=== PATIENT | female | born 1940 | race African-American/Black ===

== ENCOUNTER → 2016-05-07 | Outpatient (CLI) | payer OTHER ==
[2015-04-07 15:17] VITALS: BP 135/75
[~2016-05-07] MED LIST: ALBU2.5V5 NEB; DICL1PAT4 TD; HYDR-2666 PO; IBUP-1027 PO; IPRA3AMP IH; LOSA1TAB18 PO; PRED20TA PO; PROAIR HFA8.5 GM IH; TRAM50TA PO
--- NOTE | 2016-05-07 14:26 | RAD ---
EXAM: Chest, 2 views. HISTORY: Asthma. COMPARISON: 04/05/2015. FINDINGS: Frontal and lateral views of the chest are obtained. There is no infiltrate, effusion or pneumothorax. There is nodular opacity overlying the left upper lobe secondary to a prominent first rib and. The heart is normal in size. IMPRESSION: No acute pulmonary finding.
== END | disposition home or self-care (01) ==
LOC: RAD 13:42
PROVIDERS: ATTEND Family Medicine
DX: J45.51 Severe persistent asthma with (acute) exacerbation (principal)
CPT/HCPCS: 71020

== ENCOUNTER 2016-05-17 06:31 | Day surgery (SDC) | payer OTHER ==
[~2016-05-17] VITALS: Ht 152.4 cm; Wt 115.2 kg
[~2016-05-17 06:31] MED LIST changes: +ACET500T33 PO
[2016-05-17] MEDS ORDERED: ACETAMINOPHEN INTRAVENOUS 100 ML IV ONE (06:45)
[2016-05-17] MEDS ORDERED: HYDROMORPHONE 2 MG/ML VIAL. IV PRN (07:00)
[2016-05-17] MEDS ORDERED: FENTANYL PF 100 MCG/2 ML VIAL. IV PRN ×2 (07:00)
[2016-05-17] MEDS ORDERED: IV RINGERS,LACTATED 1000ML 1,000 ML IV SCH (07:00)
[2016-05-17] MEDS ORDERED: PROCHLORPERAZINE 10 MG/2 ML VIAL. IV PRN (07:00)
[2016-05-17] MEDS ORDERED: LIDOCAINE 1% 1 ML SYRINGE. ID PRN (07:00)
[2016-05-17] MEDS ORDERED: MORPHINE SULFATE 2 MG/ML DISP.SYRIN. IV PRN (07:00)
[2016-05-17] MEDS ORDERED: ONDANSETRON PF 4 MG/2 ML VIAL. IV PRN (07:00)
[2016-05-17] MEDS ORDERED: BUPIVACAINE-EPI 0.25%-1:200000 50 ML VIAL. ONE (07:02)
[2016-05-17] MEDS ORDERED: DESFLURANE 61 TO 120 MINUTES IH ONE (07:32)
[2016-05-17] MEDS ORDERED: FENTANYL PF 100 MCG/2 ML VIAL. ONE (07:34)
[2016-05-17] MEDS ORDERED: ONDANSETRON PF 4 MG/2 ML VIAL. ONE (07:34)
[2016-05-17] MEDS ORDERED: PROPOFOL 20 ML IV ONE (07:34)
[2016-05-17] MEDS ORDERED: DEXAMETHASONE SOD PHOS 20 MG/5 ML VIAL. ONE (07:34)
[2016-05-17] MEDS ORDERED: LIDOCAINE 2% 100 MG/5 ML DISP.SYRIN. ONE (07:34)
[2016-05-17] MEDS ORDERED: PHENYLEPHRINE in 0.9% NACL PF 1 MG/10 ML DISP.SYRIN. IV ONE (08:18)
--- NOTE | 2016-05-17 08:33 | PDOC ---
BRIEF OPERATIVE NOTE Date: May 17, 2016 Pre-Op Diagnosis Right breast mass Post-Op Diagnosis Same Procedure Performed Excisional Biopsy Right Breast Mass Surgeon Taqueria Anesthesia Type: General Blood Loss 10ml Specimens Obtained Right breast mass Findings as above Complications None RENAY PALUMBO MD May 17, 2016 08:33
--- NOTE | 2016-05-17 08:34 | DISCH ---
DISCHARGE INSTRUCTIONS Condition on Discharge Condition on Discharge: Stable Activity After Discharge Activity Instructions for Disc: Avoid exertion Diet after Discharge Diet after Discharge: Regular Wound Incision Care Other wound/incision instructi: May shower in 24 hours Contacting the after DC Call your doctor for: If your condition worsens Follow-Up Follow up with: Dr Palumbo in 2 weeks RENAY PALUMBO MD May 17, 2016 08:34
[2016-05-17] MEDS ORDERED: HYDR-971 PO (09:17)
[2016-05-17 10:10] VITALS: BP 138/67
--- NOTE | 2016-05-17 15:39 | OP ---
DATE OF SURGERY: 05/17/2016 PREOPERATIVE DIAGNOSIS: Right breast mass. POSTOPERATIVE DIAGNOSIS: Right breast mass. NAME OF THE PROCEDURE: Excision of right breast mass. SURGEON: Gerhard Palumbo MD INDICATIONS FOR THE PROCEDURE: The patient is a 75-year-old female who has a probable mass in the right breast, abnormal mammogram. Procedure of excision of mass was explained to the patient in detail. Risks and benefits were also discussed including bleeding, infection, possible necessitating further surgery depending on the pathology. The patient seemed to understand and gave verbal and written consent to have the procedure performed. DESCRIPTION OF PROCEDURE: The patient was taken to the operating room and placed in the supine position. General anesthesia was initiated. Once the patient was asleep and intubated, her right breast was prepped and draped in usual sterile fashion using ChloraPrep. Skin over the mass was incised with a 10 blade scalpel. This was carried down through subcutaneous tissue with electrocautery for hemostasis. The mass was excised sharply with electrocautery and sent for pathology. Electrocautery was used to control hemostasis. Once this was controlled, the wound was closed in 2 layers, deep layer with running 3-0 Vicryl and skin was reapproximated with 4-0 subcuticular Monocryl. Mastisol, Steri-Strips, 4x4's and Medipore tape were applied as a dressing. The patient was awakened, extubated in the operating room, taken to recovery in stable condition. All sponge and instrument counts listed as correct. ESTIMATED BLOOD LOSS: 5 mL. GERHARD PALUMBO MD DR: JAMES/kathie JOB#: [id number] / [id number] ecc Renée ILGESIAS MD
--- NOTE | 2016-05-21 14:48 | PATHOLOGY ---
PATHOLOGY REPORT * * * * * * * * FINAL DIAGNOSIS: Breast tissue, right breast mass excisional biopsy: - Fibrocystic changes with dense stromal sclerosis and focal duct ectasia. - Fat necrosis, focal. COMMENT: There is no evidence of malignancy. (JPM:; d/t: 05/21/16) REPORT ELECTRONICALLY SIGNED BY: Ziggy Saeed M.D. DATE/TIME: 05/21/2016 14:47 * * * * * * * * GROSS PATHOLOGY: The specimen is received in formalin labeled "Doris Covington, right breast mass". Received is a 311 g unoriented segment of bright yellow lobulated tissue measuring 12.5 x 10.5 x 5.6 cm in greatest dimensions. The specimen is inked black. Sectioning reveals yellow-hamlin, lobulated to white-hamlin, fibrous cut surfaces throughout with no grossly distinct nodules or lesions. The specimen is submitted representatively in cassettes A1 through A6. The cold ischemic time is 2 minutes. The total formalin fixation time is 71 hours and 23 minutes. (CAA; 05/18/2016) INITIAL CPT CODE(S): A; 67430 Professional services [place] [address] Technical services performed by [facility] at [address] [place] [address], [address], [place] [address]. SPECIMEN(S) RECEIVED: A.Right breast mass CLINICAL HISTORY: Right breast mass PATIENT: DORIS COVINGTON /AGE: 812/06/1940 (Age: 75) PATIENT #: [id number] ALT CASE #: SPECIMEN COLLECTION DATE: 05/17/2016 SPECIMEN RECEIVED DATE: 05/17/2016 [facility] - [address] [place] [address] - PHONE: [phone] * * * END OF REPORT * * *
== END 2016-05-17 10:23 | disposition home or self-care (01) ==
LOC: SURG 06:31
PROVIDERS: ATTEND Surgery
DX: N63 Unspecified lump in breast (principal); R92.8 Other abnormal and inconclusive findings on diagnostic imaging of breast; J44.9 Chronic obstructive pulmonary disease, unspecified; E66.9 Obesity, unspecified; J45.909 Unspecified asthma, uncomplicated; I10 Essential (primary) hypertension; M19.90 Unspecified osteoarthritis, unspecified site; Z98.51 Tubal ligation status
CPT/HCPCS: 19120; J0131; J1100; J1956; J2370; J2405; J2704; J3010

== ENCOUNTER → 2017-06-28 | Outpatient (CLI) | payer OTHER | END | disposition home or self-care (01) | LOC: KCIC US 08:45 | DX: I12.9 Hypertensive chronic kidney disease with stage 1 through stage 4 chronic kidney disease, or unspecified chronic kidney disease (principal); N18.3 Chronic kidney disease, stage 3 (moderate); E66.9 Obesity, unspecified; N28.1 Cyst of kidney, acquired | CPT/HCPCS: 76770 ==